=== PATIENT | male | born 1980 | race Hispanic/Latino ===

== ENCOUNTER 2017-11-07 07:23 | Emergency (ER) | payer OTHER ==
[2017-11-07 07:29] VITALS: BP 121/74; PULSE 76; TEMP 98.2; O2SAT 99
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
[2017-11-07 09:00] VITALS: RESP 16
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
== END 2017-11-07 08:48 | disposition home or self-care (01) ==
LOC: C.ER 07:23
DX: S40.011A Contusion of right shoulder, initial encounter (principal); V59.49XA Driver of pick-up truck or van injured in collision with other motor vehicles in traffic accident, initial encounter; Y92.410 Unspecified street and highway as the place of occurrence of the external cause